=== PATIENT | female | born 1940 | race Caucasian/White ===

== ENCOUNTER → 2016-04-29 | Outpatient (CLI) | payer OTHER, MEDICARE | LOC: BHFA 13:00 | PROVIDERS: ATTEND Internal Medicine Cardiovascular Disease | DX: J44.9 Chronic obstructive pulmonary disease, unspecified (principal) ==

== ENCOUNTER → 2016-09-28 | Outpatient (CLI) | payer OTHER, MEDICARE | LOC: FIMAGING 09:54 | PROVIDERS: ATTEND Internal Medicine | DX: Z12.31 Encounter for screening mammogram for malignant neoplasm of breast (principal) | CPT/HCPCS: G0202 ==

== ENCOUNTER 2017-07-14 13:46 | Emergency (ER) | payer OTHER, MEDICARE ==
[2017-07-14] MEDS ORDERED: IBUPROFEN 600 MG TAB PO ONE (15:02)
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
[2017-07-14 16:34] VITALS: BP 149/66
== END 2017-07-14 16:31 | disposition home or self-care (01) ==
LOC: EDUNIT# → EDBD
DX: S29.9XXA Unspecified injury of thorax, initial encounter (principal); J44.9 Chronic obstructive pulmonary disease, unspecified; I10 Essential (primary) hypertension; F17.200 Nicotine dependence, unspecified, uncomplicated; V49.50XA Passenger injured in collision with unspecified motor vehicles in traffic accident, initial encounter; Y92.410 Unspecified street and highway as the place of occurrence of the external cause

== ENCOUNTER → 2017-09-02 | Outpatient (CLI) | payer OTHER, MEDICARE | LOC: FIMAGING 15:31 | PROVIDERS: ATTEND Internal Medicine | DX: I67.2 Cerebral atherosclerosis (principal); I65.21 Occlusion and stenosis of right carotid artery; I10 Essential (primary) hypertension; F17.200 Nicotine dependence, unspecified, uncomplicated ==

== ENCOUNTER → 2017-11-29 | Outpatient (CLI) | payer OTHER, MEDICARE | LOC: FIMAGING 11:52 | PROVIDERS: ATTEND Internal Medicine | DX: Z12.31 Encounter for screening mammogram for malignant neoplasm of breast (principal) ==

== ENCOUNTER 2018-07-07 16:14 | Emergency (ER) | payer OTHER, MEDICARE ==
--- NOTE | 2018-07-07 16:44 | EDPHY ---
H & P Stated Complaint: low O2 sat, dyspnea on exertion Time Seen by Provider: 07/07/18 16:44 - Personal History Current Tetanus/Diphtheria Vaccine: No Current Tetanus Diphtheria and Acellular Pertussis (TDAP): No - Medical/Surgical History Hx Asthma: No Hx Chronic Respiratory Disease: Yes Hx Diabetes: No Hx Cardiac Disease: No Hx Renal Disease: No Hx Cirrhosis: No Hx Alcoholism: No Hx HIV/AIDS: No Hx Splenectomy or Spleen Trauma: No Other PMH: COPD, HTN, hypothyroid, gout - Social History Smoking Status: Current some day smoker Constitutional: Initial Vital Signs Temperature (C) 36.5 C 07/07/18 16:23 Heart Rate 67 07/07/18 16:23 Respiratory Rate 18 07/07/18 16:23 Blood Pressure 98/60 L 07/07/18 16:23 O2 Sat (%) 86 L 07/07/18 16:23 O2 Delivery Mode Nasal Cannula O2 (L/minute) 2 Allergies/Adverse Reactions: allopurinol Allergy (Verified 07/07/18 16:21) amoxicillin Allergy (Verified 07/07/18 16:21) clindamycin Allergy (Verified 07/07/18 16:21) doxycycline Allergy (Verified 07/07/18 16:21) Penicillins Allergy (Verified 07/07/18 16:21) Home Medications: Medication Instructions Recorded Amlodipine Besylate 07/14/17 Lisinopril 07/14/17 Synthroid 07/14/17 ULORIC 07/14/17 Aspirin 07/07/18 Atorvastatin Calcium 07/07/18 Lasix 07/07/18 Melatonin 07/07/18 Metoprolol Succinate 07/07/18 Sertraline HCl 07/07/18 Spiriva Inhaler (RX) 07/07/18 methylPREDNISolone [Medrol Dose 1 each PO AD #1 ea 07/07/18 Alirio] Medical Decision Making - Diagnostics Imaging Results: Imaging Impressions Chest X-Ray 07/07/18 16:49 Impression: Mild peribronchial thickening which can be seen with airways disease /bronchitis. Imaging: I viewed and interpreted images myself ED Course/Re-evaluation: CHIEF COMPLAINT: Low O2sats HISTORY OF PRESENT ILLNESS: The patient is a 77 y/o female with a history of COPD and hypertension arriving at the request of her PCP (Dr. Anaya Rodriguez) for low O2Sats. The patient takes her COPD medications, but states that sometimes it is hard to take the medications as she has difficulty inspiring. She denies using supplemental O2 at home. Starting several days ago she started cat-sitting and subsequently became more short of breath than normal. She has also had a cough that is worse at night. Due to this shortness of breath she is having more difficulty walking and sleeping. No fever, headache, body aches, lightheadedness, chest pain, heart palpitations, abdominal pain, urinary or bowel complaints, numbness, paresthesias. REVIEW OF SYSTEMS: A comprehensive 10 system review of systems is otherwise negative aside from elements mentioned in the history of present illness and medical decision making. PHYSICAL EXAM: HR, BP, O2 Sat, RR. Temp noted General Appearance: O2Sats 93% on 2L supplemental O2. Alert, well hydrated, appropriate, and non-toxic appearing. Head: Atraumatic without scalp tenderness or obvious injury Eyes: Pupils equal, round, reactive to light and accommodation, EOMI, no trauma , no injection. Ears: Clear bilaterally, no perforation, normal landmarks Nose: Atraumatic, no rhinorrhea, clear. Throat: There is no erythema or exudates, no lesions, normal tonsils, mucus membranes moist. Neck: Supple, 2+ carotid upstroke, nontender, no lymphadenopathy. Respiratory: Decreased breath sounds throughout. Expiratory greater than inspiratory. No retractions, no distress, no wheezes, and no accessory muscle use. Lungs are clear to auscultation bilaterally. Cardiovascular: Regular rate and rhythm, no murmurs, rubs, or gallops. Bilateral carotid, radial, dorsalis pedis, and posterior tibial pulses intact. Good capillary refill all extremities. Gastrointestinal: Abdomen is soft, nontender, non-distended, no masses, no rebound, no guarding, no peritoneal signs. Musculoskeletal: Normal active ROM of all extremities, atraumatic. Neurological: Alert, appropriate, and interactive. The patient has normal DTRs and non-focal cranial nerves, motor, sensory, and cerebellar exam. Skin: No rashes, good turgor, no nodules on palpation. Past medical history: COPD, hypertension, hypothyroid, gout Past surgical history: Denies Family history: Denies Social history: at bedside, lives in [place], retired DIAGNOSTICS/PROCEDURES/CRITICAL CARE TIME: EKG: The 12 lead EKG was interpreted by myself as sinus rhythm with a rate of 64. See hard copy and/or "tracemaster" electronic copy for interpretation. Chest x-ray: Mild peribronchial thickening which can be seen with airways disease/bronchitis. DIFFERENTIAL DIAGNOSIS: The differential diagnosis for the patient's shortness of breath and hypoxemia included but was not limited to allergic reaction, pneumonia, myocardial infarction, acute mountain sickness, high altitude pulmonary edema, congestive heart failure, and pulmonary embolus. MEDICAL DECISION MAKING: The patient is a 77 y/o female with a history of COPD and hypertension arriving at the request of her PCP (Dr. Anaya Rodriguez) for low O2Sats and a cough for several days. She denies using supplemental O2 at home. Her O2Sats are 93% on 2L supplemental oxygen. On exam she has decreased breath sounds throughout and her expiratory is greater than inspiratory. Labs, EKG, and chest x-ray ordered. 1638: I interpreted patient's EKG as sinus rhythm with a rate of 64. 1700: Patient's troponin is negative. 1732: I reviewed patient's labs which reveal chronic renal insufficiency, which is mildly better than normal today. Patient's chest x-ray reveals bronchitis. She is non-compliant with her medications and does not monitor her O2Sats. 1734: Reassessed patient and discussed laboratory and imaging findings. Upon further questioning I suspect she is having an allergic reaction to the cat that she is watching. 60mg PO Prednisone administered prior to discharge. I have also prescribed her a Medrol Dose Pack and advised her to use Zyrtec. Return precautions provided; patient is comfortable with this plan. - Data Points Laboratory Results: Laboratory Results 07/07/18 16:45 07/07/18 16:45 07/07/18 07/07/18 07/07/18 17:03 16:51 16:45 WBC RBC Hgb Hct MCV MCH MCHC RDW Plt Count MPV Neut % (Auto) Lymph % (Auto) [place] % (Auto) Eos % (Auto) Baso % (Auto) Nucleat RBC Rel Count Absolute Neuts (auto) Absolute Lymphs (auto) Absolute Monos (auto) Absolute Eos (auto) Absolute Basos (auto) Absolute Nucleated RBC Immature Gran % Immature Gran # PT INR APTT VBG Lactic Acid 0.8 mmol/L mmol/L (0.7-2.1) Sodium 141 mEq/L mEq/L (135-145) Potassium 3.3 mEq/L L mEq/L (3.5-5.2) Chloride 103 mEq/L mEq/L (97-110) Carbon Dioxide 27 mEq/l mEq/l (22-31) Anion Gap 11 mEq/L mEq/L (6-14) BUN 32 mg/dL H mg/dL (7-23) Creatinine 1.4 mg/dL H mg/dL (0.6-1.0) Estimated GFR 37 Glucose 121 mg/dL H mg/dL (70-100) Calcium 8.8 mg/dL mg/dL (8.5-10.4) Total Bilirubin 0.4 mg/dL mg/dL (0.1-1.4) POC Troponin I 0.02 ng/mL ng/mL (0.00-0.08) 07/07/18 07/07/18 16:45 16:45 WBC 11.50 10^3/uL H 10^3/uL (3.80-9.50) RBC 4.41 10^6/uL 10^6/uL (4.18-5.33) Hgb 13.0 g/dL g/dL (12.6-16.3) Hct 39.5 % % (38.0-47.0) MCV 89.6 fL fL (81.5-99.8) MCH 29.5 pg pg (27.9-34.1) MCHC 32.9 g/dL g/dL (32.4-36.7) RDW 14.9 % % (11.5-15.2) Plt Count 244 10^3/uL 10^3/uL (150-400) MPV 10.7 fL fL (8.7-11.7) Neut % (Auto) 70.5 % % (39.3-74.2) Lymph % (Auto) 14.4 % L % (15.0-45.0) [place] % (Auto) 8.6 % % (4.5-13.0) Eos % (Auto) 5.2 % % (0.6-7.6) Baso % (Auto) 0.7 % % (0.3-1.7) Nucleat RBC Rel Count 0.0 % % (0.0-0.2) Absolute Neuts (auto) 8.10 10^3/uL H 10^3/uL (1.70-6.50) Absolute Lymphs (auto) 1.66 10^3/uL 10^3/uL (1.00-3.00) Absolute Monos (auto) 0.99 10^3/uL H 10^3/uL (0.30-0.80) Absolute Eos (auto) 0.60 10^3/uL H 10^3/uL (0.03-0.40) Absolute Basos (auto) 0.08 10^3/uL 10^3/uL (0.02-0.10) Absolute Nucleated RBC 0.00 10^3/uL 10^3/uL (0-0.01) Immature Gran % 0.6 % % (0.0-1.1) Immature Gran # 0.07 10^3/uL 10^3/uL (0.00-0.10) PT 13.8 SEC SEC (12.0-15.0) INR 1.10 (0.83-1.16) APTT 34.4 SEC SEC (23.0-38.0) VBG Lactic Acid Sodium Potassium Chloride Carbon Dioxide Anion Gap BUN Creatinine Estimated GFR Glucose Calcium Total Bilirubin POC Troponin I Point of Care Test Results: Chemistry 07/07/18 16:51 POC Troponin I 0.02 ng/mL ng/mL (0.00-0.08) Departure - Departure Disposition: Home, Routine, Self-Care Clinical Impression: Bronchitis Chronic renal insufficiency Qualifiers: Chronic kidney disease stage: unspecified stage Qualified Code(s): N18.9 - Chronic kidney disease, unspecified Allergic reaction Qualifiers: Encounter type: initial encounter Qualified Code(s): T78.40XA - Allergy, unspecified, initial encounter Condition: Good Instructions: Acute Bronchitis (ED), COPD (Chronic Obstructive Pulmonary Disease) (ED), Allergies (ED) Additional Instructions: 1. Start using Zyrtec, which you can buy over the counter. 2. Take the Medrol Dose pack as prescribed. 3. Follow-up with your primary doctor within 72 hours. 4. Return to the Emergency Department for severe headache, vomiting, vision changes, confusion, fever or other concerns. Referrals: Caridad Rodriguez PA [Physician Backbreaker] - As per Instructions Prescriptions: methylPREDNISolone [Medrol Dose Alirio] 1 each PO AD #1 ea Report Scribed for: Toan Álvarez Report Scribed by: Fara Valentin Date of Report: 07/07/18 Time of Report: 16:45
[2018-07-07 16:56] LABS: PLATELET COUNT 244 10^3/uL (150-400)
[2018-07-07 17:05] LABS: INR 1.1 (0.83-1.16); PROTIME(PATIENT) 13.8 SEC (12.0-15.0)
[2018-07-07] MEDS ORDERED: predniSONE 20 MG TAB PO ONE (17:35)
[2018-07-07 18:09] VITALS: BP 156/63
--- NOTE | 2018-07-07 19:30 | CPEKG ---
Test Reason : OPEN Blood Pressure : / mmHG Vent. Rate : 064 BPM Atrial Rate : 064 BPM P-R Int : 165 ms QRS Dur : 093 ms QT Int : 382 ms P-R-T Axes : 013 065 269 degrees QTc Int : 394 ms Sinus rhythm Repol abnrm suggests ischemia, diffuse leads Confirmed by Toan Álvarez ([id number]) on 07/07/2018 7:30:21 PM Referred By: PHYSICIAN ED Confirmed By:Toan Álvarez
== END 2018-07-07 18:09 | disposition home or self-care (01) ==
DX: J40 Bronchitis, not specified as acute or chronic (principal); J44.9 Chronic obstructive pulmonary disease, unspecified; I10 Essential (primary) hypertension; Z79.899 Other long term (current) drug therapy
CPT/HCPCS: 71046; 93005; 99285; J7512; 84484-ER